=== PATIENT | female | born 1995 | race African-American/Black ===

== ENCOUNTER 2018-11-13 09:04 | Emergency (ER) | payer SELFPAY | END 2018-11-13 10:30 | disposition home or self-care (01) | LOC: ERS 09:04 | DX: J11.1 Influenza due to unidentified influenza virus with other respiratory manifestations (principal) | CPT/HCPCS: 87804; 99283 ==

== ENCOUNTER 2019-12-22 21:15 | Emergency (ER) | payer SELFPAY ==
[2019-12-22] MEDS ORDERED: Acetaminophen 500 MG TAB ONE (22:17)
[2019-12-22 22:41] LABS: #Basophils 0.1 thou/uL (0.0-0.2); #Lymphocytes 2.1 thou/uL (1.20-3.40); #Monocytes 0.9 thou/uL (0.11-0.59); %Basophils 0.8 % (0.0-1.0); %Eosinophils 0.4 % (0.0-10.0); %Monocytes 6.5 % (0.0-10.0); %Neutrophils 76.3 % (42.0-75.0); Hemoglobin 11.6 g/dL (12.0-16.0); Mean Corpuscular HGB CONC 32.8 g/dL (32.0-36.0); Mean Corpuscular Hemoglobin 23.8 pg (27.0-31.0); Mean Corpuscular Volume 72.6 fL (78.0-98.0); Mean Platelet Volume 7.5 fL (7.4-10.4); Platelet Count 355 thou/uL (130-400); RBC Distribution Width 14.2 % (11.5-14.5); Red Blood Cell (RBC) Count 4.87 mill/uL (4.20-5.40); White Blood Cell (WBC) Count 13.2 thou/uL (4.8-10.8)
[2019-12-22 22:42] LABS: Bilirubin Negative (Negative); Blood, Urine Negative (Negative); Clarity Clear (Clear); Glucose, Urine (Dipstick) Normal (Negative); Leukocyte Negative Leu/uL (Negative); Nitrite Negative (Negative); Protein, Urine (Dipstick) 10 mg/dL (Neg-Trace); Urobilinogen Normal mg/dL (Less than 2)
[2019-12-22 22:46] LABS: BHCG - Serum Negative (NEGATIVE); Pregs Control Background? CLEAR/WHITE (CLR/WHITE); Pregs Control Bar Appear? YES (CONTROL BAR)
[2019-12-22 23:04] LABS: ALT (SGPT) 12 U/L (8-55); AST (SGOT) 18 U/L (5-34); Albumin 4.3 g/dL (3.5-5.0); Alkaline Phosphatase 63 U/L (40-110); Anion Gap 9 mmol/L (10-20); BUN (Urea Nitrogen) 8 mg/dL (7.0-18.7); Bilirubin, Total 0.9 mg/dL (0.2-1.2); Calc. Creatinine Clearance 0 mL/min (70-130); Calcium 9.4 mg/dL (7.8-10.44); Carbon Dioxide 24 mmol/L (22-29); Chloride 105 mmol/L (98-107); Estimated GFR-MDRD Greater than 90; Glucose 91 mg/dL (70-105); Lipase 5 U/L (8-78); Potassium 3.6 mmol/L (3.5-5.1); Protein, Total 7.3 g/dL (6.0-8.3); Sodium 134 mmol/L (136-145)
--- NOTE | 2019-12-22 23:14 | ULT ---
TRANSABDOMINAL TRANSVAGINAL PELVIC ULTRASOUND DATE:: 12/22/2019 10:06 PM CLINICAL HISTORY: Pelvic pain for 2 days. COMPARISON: None. TECHNIQUE: Grayscale, color Doppler and spectral Doppler images were obtained of the pelvis see a tra nsabdominal and transvaginal approach FINDINGS: UTERUS: Size: 8.0 x 3.9 x 4.1 cm Mass: None Cervix: Within normal limits Endometrial Thickness: 5.5 mm. OVARIES: Size: Right measures 4.9 x 4.4 x 4.9 cm; Left measures 2.9 x 1.6 x 2.3 cm Mass: There is a 4.0 x 3.1 x 3.6 cm nonvascular , mixed echogenicity lesion involving the right ovary . Flow: Normal CUL-DE-SAC: Minimal free fluid IMPRESSION: 4 cm, nonvascular, mixed echogenicity lesion involving the right ovary may reflect a complex ovarian cyst such as a hemorrhagic cyst. Follow-up pelvic ultrasound in 6-8 weeks is recommended to document resolution.
== END 2019-12-23 00:13 | disposition home or self-care (01) ==
LOC: ERS 21:15
DX: N83.201 Unspecified ovarian cyst, right side (principal)
CPT/HCPCS: 76856; 80053; 81003; 83690; 84703; 85025